=== PATIENT | male | born 1970 | race Caucasian/White ===

== ENCOUNTER → 2016-11-24 12:21 | Emergency (ER) | payer OTHER ==
[~2016-11-24 12:21] MED LIST: Al Hydrox/Mg Hydrox/Simet LIQ* 30 ML UDC PO ONE; HYDROcodone/ACETAMIN 5-325 MG* 1 TAB PO ONE; Lidocaine 2% VISCOUS* 15 ML UDC PO ONE; Sucralfate TAB* 1 GM ONE; Sucralfate TAB* 1 GM PO ONE
--- NOTE | 2016-11-24 13:24 | RAD ---
INDICATION: Chest pain. COMPARISON: There are no prior studies available for comparison. TECHNIQUE: A portable view of the chest was obtained. FINDINGS: Cardiac and mediastinal contours appear to be within normal limits. The lungs are clear. No pleural effusion is seen. IMPRESSION: NO EVIDENCE FOR ACUTE DISEASE.
[2016-11-24 13:35] LABS: Albumin 4.4 g/dL (3.2-5.2); BUN/Creatinine Ratio 17.6 (8-20); Calcium 9.2 mg/dL (8.6-10.3); EGFR African American 69.7 (>60); EGFR Non-African American 54.2 (>60); Globulin 2.7 g/dL (2-4); Potassium 3.7 mmol/L (3.5-5.0); Total Bilirubin 0.8 mg/dL (0.2-1.0); Total Protein 7.1 g/dL (6.4-8.9)
[2016-11-24 13:46] LABS: Hematocrit 46 % (42-52); Hemoglobin 15.2 g/dl (14.0-18.0); Mean Corpuscular HGB Conc 33 g/dl (31-36); Mean Corpuscular Hemoglobin 29 pg (27-31); Mean Corpuscular Volume 90 fL (80-94); Mean Platelet Volume 8 um3 (7.4-10.4); Red Blood Count 5.18 10^6/ul (4.0-5.4); Red Cell Distribution Width 14 % (10.5-15); White Blood Count 8.1 10^3/ul (3.5-10.8)
[2016-11-24 18:34] VITALS: BP 112/77
--- NOTE | 2016-11-24 18:41 | ED ---
Anitha Guerrier Auryana, scribed for Russell Duran MD on 11/24/16 at 1310 . 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 Patient reports that the pain is a constant ache with intermittent cramping that last 10-15 seconds - x15-20 episodes today - last episode 12:45. He reports at 11:30 he started to have nausea and diaphoresis. His last meal was breakfast - cereal. states that he stay hydrated. Pain not aggravated by touch. Patient reports that he is currently on numerous medications for inflamed epiglottis. 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 FHx is significant for stoke and LA. - History of Current Complaint Chief Complaint: EDChestPainROMI Time Seen by Provider: 11/24/16 12:41 Hx Obtained From: Patient Onset/Duration: Started Hours Ago, Still Present Time of Onset: 10:00 Timing: Constant Initial Severity: Mild Current Severity: Mild Pain Intensity: 3 Pain Scale Used: 0-10 Numeric Chest Pain Location: Diffuse Chest Pain Radiates: No Character: Dull/Aching, Other: - cramping Associated Signs and Symptoms: Positive: Chest Pain, Diaphoresis, Nausea - Allergy/Home Medications Allergies/Adverse Reactions: Allergies Allergy/AdvReac Type Severity Reaction Status Date / Time Morphine Allergy Intermediate See Comment Verified 11/24/16 12:29 PMH/Surg Hx/FS Hx/Imm Hx EENT History: Reports: Hx Seasonal Allergies, Other - inflammed epiglottis Infectious Disease History: No Infectious Disease History: Denies: Traveled Outside the [place] in Last 30 Days - Family History Known Family History: Positive: Cardiac Disease - [place], Other - STOKE - Social History Occupation: Employed Full-time Lives: With Family Alcohol Use: None Hx Substance Use: No Substance Use Type: Reports: None Hx Tobacco Use: Yes Smoking Status (MU): Former Smoker Review of Systems Positive: Skin Diaphoresis. Negative: Fever Eyes: Negative ENT: Negative Positive: Chest Pain - CRAMPING/ACHE Respiratory: Negative Positive: Nausea Genitourinary: Negative Musculoskeletal: Negative Skin: Negative Neurological: Negative Psychological: Normal All Other Systems Reviewed And Are Negative: Yes Physical Exam Triage Information Reviewed: Yes Vital Signs On Initial Exam: Initial Vitals Temp Pulse Resp BP Pulse Ox 96.9 F 74 16 132/80 98 11/24/16 12:23 11/24/16 12:23 11/24/16 12:23 11/24/16 12:23 11/24/16 12:23 Vital Signs Reviewed: Yes Appearance: Positive: Well-Appearing, No Pain Distress, Well-Nourished Skin: Positive: Warm, Skin Color Reflects Adequate Perfusion, Dry Head/Face: Positive: Normal Head/Face Inspection Eyes: Positive: Normal ENT: Positive: Normal ENT inspection Neck: Positive: Supple, Nontender Respiratory/Lung Sounds: Positive: Clear to Auscultation, Breath Sounds Present Cardiovascular: Positive: RRR Musculoskeletal: Positive: Normal, Strength/ROM Intact Neurological: Positive: Normal, Sensory/Motor Intact Psychiatric: Positive: Normal, Affect/Mood Appropriate - [place] Coma Scale Coma Scale Total: 15 Diagnostics - Vital Signs Vital Signs Temp Pulse Resp BP Pulse Ox 11/24/16 12:35 79 95 11/24/16 12:34 72 11/24/16 12:33 116/81 11/24/16 12:26 97.0 F 77 16 132/80 97 11/24/16 12:23 96.9 F 74 16 132/80 98 - Laboratory Lab Results: Lab Results 11/24/16 11/24/16 11/24/16 Range/Units 12:45 12:45 12:45 WBC 8.1 (3.5-10.8) 10^3/ul RBC 5.18 (4.0-5.4) 10^6/ul Hgb 15.2 (14.0-18.0) g/dl Hct 46 (42-52) % MCV 90 (80-94) fL MCH 29 (27-31) pg MCHC 33 (31-36) g/dl RDW 14 (10.5-15) % Plt Count 232 (150-450) 10^3/ul MPV 8 (7.4-10.4) um3 Neut % (Auto) 58.8 (38-83) % Lymph % (Auto) 28.2 (25-47) % Worth % (Auto) 9.7 H (1-9) % Eos % (Auto) 2.6 (0-6) % Baso % (Auto) 0.7 (0-2) % Absolute Neuts (auto) 4.8 (1.5-7.7) 10^3/ul Absolute Lymphs (auto) 2.3 (1.0-4.8) 10^3/ul Absolute Monos (auto) 0.8 (0-0.8) 10^3/ul Absolute Eos (auto) 0.2 (0-0.6) 10^3/ul Absolute Basos (auto) 0.1 (0-0.2) 10^3/ul Absolute Nucleated RBC 0.01 10^3/ul Nucleated RBC % 0.1 D-Dimer, Quantitative (Less Than 230) ng/mL Sodium 135 (133-145) mmol/L Potassium 3.7 (3.5-5.0) mmol/L Chloride 107 (101-111) mmol/L Carbon Dioxide 22 (22-32) mmol/L Anion Gap 6 (2-11) mmol/L BUN 25 H (6-24) mg/dL Creatinine 1.42 H (0.67-1.17) mg/dL Est GFR ( Amer) 69.7 (>60) Est GFR (Non-Af Amer) 54.2 (>60) BUN/Creatinine Ratio 17.6 (8-20) Glucose 84 (70-100) mg/dL Lactic Acid 0.6 (0.5-2.0) mmol/L Calcium 9.2 (8.6-10.3) mg/dL Total Bilirubin 0.80 (0.2-1.0) mg/dL AST 16 (13-39) U/L ALT 17 (7-52) U/L Alkaline Phosphatase 61 (34-104) U/L Troponin I 0.00 (<0.04) ng/mL Total Protein 7.1 (6.4-8.9) g/dL Albumin 4.4 (3.2-5.2) g/dL Globulin 2.7 (2-4) g/dL Albumin/Globulin Ratio 1.6 (1-3) 11/24/16 11/24/16 Range/Units 12:45 16:38 WBC (3.5-10.8) 10^3/ul RBC (4.0-5.4) 10^6/ul Hgb (14.0-18.0) g/dl Hct (42-52) % MCV (80-94) fL MCH (27-31) pg MCHC (31-36) g/dl RDW (10.5-15) % Plt Count (150-450) 10^3/ul MPV (7.4-10.4) um3 Neut % (Auto) (38-83) % Lymph % (Auto) (25-47) % Worth % (Auto) (1-9) % Eos % (Auto) (0-6) % Baso % (Auto) (0-2) % Absolute Neuts (auto) (1.5-7.7) 10^3/ul Absolute Lymphs (auto) (1.0-4.8) 10^3/ul Absolute Monos (auto) (0-0.8) 10^3/ul Absolute Eos (auto) (0-0.6) 10^3/ul Absolute Basos (auto) (0-0.2) 10^3/ul Absolute Nucleated RBC 10^3/ul Nucleated RBC % D-Dimer, Quantitative < 200 (Less Than 230) ng/mL Sodium (133-145) mmol/L Potassium (3.5-5.0) mmol/L Chloride (101-111) mmol/L Carbon Dioxide (22-32) mmol/L Anion Gap (2-11) mmol/L BUN (6-24) mg/dL Creatinine (0.67-1.17) mg/dL Est GFR ( Amer) (>60) Est GFR (Non-Af Amer) (>60) BUN/Creatinine Ratio (8-20) Glucose (70-100) mg/dL Lactic Acid (0.5-2.0) mmol/L Calcium (8.6-10.3) mg/dL Total Bilirubin (0.2-1.0) mg/dL AST (13-39) U/L ALT (7-52) U/L Alkaline Phosphatase (34-104) U/L Troponin I 0.00 (<0.04) ng/mL Total Protein (6.4-8.9) g/dL Albumin (3.2-5.2) g/dL Globulin (2-4) g/dL Albumin/Globulin Ratio (1-3) Result Diagrams: 11/24/16 12:45 11/24/16 12:45 Lab Statement: Any lab studies that have been ordered have been reviewed, and results considered in the medical decision making process. - Radiology CXR Xray Interpretation: No Acute Changes - NAD Radiology Interpretation Completed By: Radiologist - EKG 12:31 EKG Interpretation: NSR Re-Evaluation - Re-Evaluation First Eval Re-Evaluation Time: 15:41 Change: Unchanged Second Eval Re-Evaluation Time: 18:03 Change: Unchanged Comment: WILL GIVE GI COCKTAIL. Chest Pain Course/Dx - Course Course Of Treatment: Mr. Horowitz cameedgardo with an atypical CP that started at 1000. His W/U including a delayed troponin was negative and the only medication which helped his pain was a GI Cocktail. Again, this is a very unusual pain but I do not think it represents a cardiac event. I recommended close F/U. - Diagnoses Provider Diagnoses: Esophagitis Discharge - Discharge Plan Condition: Stable Disposition: HOME Prescriptions: Sucralfate TAB* [Carafate*] 1 gm PO QID #40 tab Patient Education Materials: Sucralfate (By mouth), Esophagitis (ED) Referrals: Erik Brown III, [employer] [Primary Care Provider] - 3 Days The documentation as recorded by the Anitha rizvi Auryana accurately reflects the service I personally performed and the decisions made by me, Russell Duran MD.
== END | disposition home or self-care (01) ==
LOC: ED 12:21
DX: K20.9 Esophagitis, unspecified (principal); Z87.891 Personal history of nicotine dependence
CPT/HCPCS: 36415; 71010; 80053; 83605; 84484; 85025; 85379; 93005; 99284; A9270-GY